=== PATIENT | male | born 1975 | race Two or more races ===

== ENCOUNTER 2024-10-17 06:28 | Day surgery (SDC) | payer BC, SELFPAY | END 2024-10-17 10:47 | disposition home or self-care (01) | LOC: GI 06:28 | PROVIDERS: ATTENDING PHYSICIAN Internal Medicine Gastroenterology | DX: Z12.11 Encounter for screening for malignant neoplasm of colon (principal); K64.8 Other hemorrhoids | CPT/HCPCS: G0121 ==